=== PATIENT | male | born 1965 | race Caucasian/White ===

== ENCOUNTER 2018-04-07 13:24 | Emergency (ER) | payer SELFPAY ==
[2018-04-07] MEDS ORDERED: LIDOCAINE 1% MPF 5 ML VIAL ONE (15:05)
--- NOTE | 2018-04-07 15:25 | ER ---
Nurse's Notes [facility] Name: Alfonso Gloria Age: 52 yrs Sex: Male : 1965 Arrival Date: 04/07/2018 Time: 13:28 Bed 11 Private MD: None, None Diagnosis: Abrasion of forearm Presentation: 04/07 13:48 Presenting complaint: Patient states: 'I was hanging my knives up and one of them fell aa5 and cut my arm". Laceration noted to R FA, approximately 1 in long, no active bleeding noted, dressing applied. Transition of care: patient was not received from another setting of care. Complicating Factors: There are no complicating factors for this patient. Onset of symptoms was April 07, 2018. Risk Assessment: Do you want to hurt yourself or someone else? Patient reports no desire to harm self or others. Initial Sepsis Screen: Does the patient meet any 2 criteria? No. Patient's initial sepsis screen is negative. Does the patient have a suspected source of infection? No. Patient's initial sepsis screen is negative. Care prior to arrival: None. 13:48 Method Of Arrival: Ambulatory aa5 13:48 Acuity: ALPHONSE 4 aa5 Historical: - Allergies: 13:50 Haldol; aa5 - PMHx: 13:50 None; aa5 - PSHx: 13:50 left arm; aa5 - Immunization history:: Last tetanus immunization: unknown. - Social history:: Smoking status: Patient uses tobacco products, smokes one-half pack cigarettes per day, Patient/guardian denies using alcohol, street drugs, The patient lives with family. - Ebola Screening: : No symptoms or risks identified at this time. - Family history:: not pertinent. Screenin:00 Abuse screen: Denies threats or abuse. Nutritional screening: No deficits noted. aa5 Tuberculosis screening: No symptoms or risk factors identified. Fall Risk None identified. Assessment: 13:50 General: Appears comfortable, Behavior is calm, cooperative. Pain: Complains of pain in aa5 dorsal aspect of right forearm. Neuro: Level of Consciousness is awake, alert, obeys commands, Oriented to person, place, time, situation. Cardiovascular: Patient's skin is warm and dry. Respiratory: Airway is patent Respiratory effort is even, unlabored, Respiratory pattern is regular, symmetrical. GI: No signs and/or symptoms were reported involving the gastrointestinal system. : No signs and/or symptoms were reported regarding the genitourinary system. EENT: No signs and/or symptoms were reported regarding the EENT system. Derm: Skin is pink, warm \\T\\ dry. Musculoskeletal: Range of motion: intact in all extremities. Injury Description: Laceration sustained to dorsal aspect of right forearm is clean, 0.5 to 2.5 cm long, not bleeding. Vital Signs: 13:50 BP 122 / 97; Pulse 91; Resp 16 S; Temp 97.6(TE); Pulse Ox 98% on R/A; Weight 71.67 kg aa5 (R); Height 5 ft. 9 in. (175.26 cm) (R); Pain 7/10; 13:50 Body Mass Index 23.33 (71.67 kg, 175.26 cm) aa5 ED Course: 13:28 Patient arrived in ED. mr 13:29 None, None is Private Physician. mr 13:48 Arm band placed on. aa5 13:48 Patient has correct armband on for positive identification. aa5 13:49 Triage completed. aa5 14:02 Ines Hurst, RN is Primary Nurse. aa5 14:04 Vikki Cuenca MD is Attending Physician. ma2 15:50 Assist provider with laceration repair on dorsal aspect of right forearm that was aj between 2.6 to 7.5 cm using sutures. Set up tray. Performed by Vikki Cuenca MD Patient tolerated well. 15:51 Patient did not have IV access during this emergency room visit. aj Administered Medications: 15:40 Drug: Lidocaine (2 %) 10 mg Volume: 5 ml; Route: Infiltration; aj Outcome: 15:24 Discharge ordered by . ma2 15:48 Discharged to home ambulatory. aj 15:48 Condition: good 15:48 Discharge instructions given to patient, Instructed on discharge instructions, follow up and referral plans. Demonstrated understanding of instructions, follow-up care. 15:51 Patient left the ED. aj Signatures: Luciana Lindsay RN Kimberly Mcclendon mr Ines Hurst RN RN aa5 Alzahri, Mohammad, MD MD ma2 Corrections: (The following items were deleted from the chart) 15:24 14:20 General: Appears comfortable, Behavior is calm, cooperative, aa5 aa5 14:20 Pain: Complains of pain in dorsal aspect of right forearm aa5 aa5 14:20 Neuro: Level of Consciousness is awake, alert, obeys commands, Oriented to aa5 person, place, time, situation, aa5 14:20 Cardiovascular: Patient's skin is warm and dry. aa5 aa5 14:20 Respiratory: Airway is patent Respiratory effort is even, unlabored, Respiratory aa5 pattern is regular, symmetrical, aa5 14:20 GI: No signs and/or symptoms were reported involving the gastrointestinal system. aa5 aa5 14:20 : No signs and/or symptoms were reported regarding the genitourinary system. [facility] 14:20 EENT: No signs and/or symptoms were reported regarding the EENT system. aa5 aa5 14:20 Derm: Skin is pink, warm \\T\\ dry. aa5 aa 14:20 Musculoskeletal: Range of motion: intact in all extremities, aa5 aa 14:20 Injury Description: Laceration sustained to dorsal aspect of right forearm is aa5 clean, 0.5 to 2.5 cm long, not bleeding, aa5
--- NOTE | 2018-04-07 15:25 | EDPHYS ---
Physician Documentation [facility] Name: Alfonso Gloria Age: 52 yrs Sex: Male : 1965 Arrival Date: 04/07/2018 Time: 13:28 Bed 11 Private MD: None, None ED Physician Vikki Cuenca HPI: 04/07 15:19 This 52 yrs old Male presents to ER via Ambulatory with complaints of ma2 Laceration To Arm. 15:19 The laceration(s) is(are) located on the right arm. Onset: The symptoms/episode ma2 began/occurred acutely, suddenly, 1 hour(s) ago. Associated signs and symptoms: Pertinent negatives: deformity, dizziness, heavy bleeding. The patient has not experienced similar symptoms in the past. Historical: - Allergies: 13:50 Haldol; aa5 - PMHx: 13:50 None; aa5 - PSHx: 13:50 left arm; aa5 - Immunization history:: Last tetanus immunization: unknown. - Social history:: Smoking status: Patient uses tobacco products, smokes one-half pack cigarettes per day, Patient/guardian denies using alcohol, street drugs, The patient lives with family. - Ebola Screening: : No symptoms or risks identified at this time. - Family history:: not pertinent. ROS: 15:19 Constitutional: Negative for fever, chills, and weight loss. ma2 15:19 Skin: Positive for laceration(s), Negative for burn, discoloration, ecchymosis, pallor, rash, ulceration. 15:19 All other systems are negative. Exam: 15:19 Constitutional: This is a well developed, well nourished patient who is awake, alert, ma2 and in no acute distress. 15:19 Cardiovascular: Regular rate and rhythm with a normal S1 and S2. No gallops, murmurs, or rubs. Normal PMI, no JVD. No pulse deficits. Respiratory: Lungs have equal breath sounds bilaterally, clear to auscultation and percussion. No rales, rhonchi or wheezes noted. No increased work of breathing, no retractions or nasal flaring. Abdomen/GI: Soft, non-tender, with normal bowel sounds. No distension or tympany. No guarding or rebound. No evidence of tenderness throughout. Male : Normal genitalia with no discharge or lesions. Neuro: Awake and alert, GCS 15, oriented to person, place, time, and situation. Cranial nerves II-XII grossly intact. Motor strength 5/5 in all extremities. Sensory grossly intact. Cerebellar exam normal. Normal gait. 15:19 Musculoskeletal/extremity: ROM: intact in all extremities, Circulation is intact in all extremities. Sensation intact. Compartment Syndrome exam of affected extremity: is normal. 15:19 Skin: injury, laceration(s), the wound is approximately 1 cm(s). Vital Signs: 13:50 BP 122 / 97; Pulse 91; Resp 16 S; Temp 97.6(TE); Pulse Ox 98% on R/A; Weight 71.67 kg aa5 (R); Height 5 ft. 9 in. (175.26 cm) (R); Pain 7/10; 13:50 Body Mass Index 23.33 (71.67 kg, 175.26 cm) aa5 Laceration: 15:19 Wound Repair of 2cm ( 0.8in ) subcutaneous laceration to right arm. Distal ma2 neuro/vascular/tendon intact. Anesthesia: Local anesthetic administered with 10 mls of 1% lidocaine w/ Epi. Wound prep: Wound irrigation. Skin closed with 6 3-0 Prolene using simple sutures and sterile technique. Dressed with Bacitracin. Patient tolerated well. 15:19 Wound Repair of laceration to right arm. Anesthesia: Local anesthetic administered with ma2 1% lidocaine. MDM: 14:04 Patient medically screened. ma2 15:19 Differential diagnosis: superficial laceration. Data reviewed: vital signs, nurses ma2 notes. Counseling: I had a detailed discussion with the patient and/or guardian regarding: the historical points, exam findings, and any diagnostic results supporting the discharge/admit diagnosis, the presence of at least one elevated blood pressure reading (>120/80) during this emergency department visit, the need for outpatient follow up. Response to treatment: the patient's symptoms have resolved after treatment. 04/07 14:49 Order name: Suture Tray at Bedside; Complete Time: 15:40 ma2 Administered Medications: 15:40 Drug: Lidocaine (2 %) 10 mg Volume: 5 ml; Route: Infiltration; aj Disposition: 04/07/18 15:24 Discharged to Home. Impression: Abrasion of forearm. - Condition is Stable. - Medication Reconciliation Form, Thank You Letter, Antibiotic Education, Prescription Opioid Use form. - Follow up: Private Physician; When: Tomorrow; Reason: Continuance of care. - Notes: remove sutures in 10 days Signatures: Luciana Lindsay, RN RN Ines Dooley RN RN aa5 Vikki Cuenca MD MD ma2 Corrections: (The following items were deleted from the chart) 15:51 15:24 04/07/2018 15:24 Discharged to Home. Impression: Abrasion of forearm. Condition aj is Stable. Forms are Medication Reconciliation Form, Thank You Letter, Antibiotic Education, Prescription Opioid Use. Follow up: Private Physician; When: Tomorrow; Reason: Continuance of care. ma2
== END 2018-04-07 15:51 | disposition home or self-care (01) ==
LOC: ER 13:24
PROC: 0JQG0ZZ Repair Right Lower Arm Subcutaneous Tissue and Fascia, Open Approach (ICD-10-PCS; principal; 2018-04-07)
DX: S41.111A Laceration without foreign body of right upper arm, initial encounter (principal); F17.210 Nicotine dependence, cigarettes, uncomplicated; W26.0XXA Contact with knife, initial encounter; Y93.89 Activity, other specified; Y92.009 Unspecified place in unspecified non-institutional (private) residence as the place of occurrence of the external cause; Z88.5 Allergy status to narcotic agent
CPT/HCPCS: 99283